=== PATIENT | female | born 1940 | race African-American/Black ===

== ENCOUNTER → 2016-11-16 | Outpatient (CLI) | payer OTHER ==
[~2016-11-16] MED LIST: ALBUTEROL SULF8.5 GM IH; AMLODIPINE BESYL5 MG PO; ANTIVERT25 MG PO; ARTHRITIS PAIN650 M1 PO; ASPIR-LOW81 MG PO; ASPIRIN325 MG PO; CENTRUM SILVER1 EAC3 PO; DILANTIN100 MG PO; GABAPENTIN300 MG PO; HYDROCHLOROTH12.5 M3 PO; HYDROCHLOROTHIA25 MG PO; K-DUR10 MEQ PO; K-DUR20 MEQ PO; KEFLEX500 MG PO; KEPPRA750 MG PO; LAMICTAL100 MG PO; LEVETIRACETAM750 MG PO; LIDOCAINE700 MG TD; LISINOPRIL-HCT1 EAC3 PO; LO-DOSE ASPIRIN81 M1 PO; LOPRESSOR50 MG PO; MAG-AL PLUS SUS30 ML PO; NAPROSYN500 MG PO; NEURONTIN300 MG PO; NIFEDIAC CC90 MG PO; NIFEDIPINE ER90 MG PO; OXYCODONE HCL5 MG PO; PANTOPRAZOLE SO40 MG PO; PHENYTEK PO; PHENYTOIN SODI300 MG PO; POTASSIUM GLUCO2 MEQ PO; PREDNISONE20 MG PO; TESSALON PERLE100 MG PO; TOPROL XL100 MG PO; TYLENOL REGULA325 MG PO; TYLENOL WITH C1 EACH PO; ZITHROMAX Z-PA250 MG PO
== END | disposition home or self-care (01) ==
LOC: CDC 10:07
DX: R94.31 Abnormal electrocardiogram [ECG] [EKG] (principal)
CPT/HCPCS: 93000

== ENCOUNTER → 2016-11-25 | Emergency (ER) | payer OTHER ==
[~2016-11-25] VITALS: Ht 165.1 cm; Wt 92.9 kg
[~2016-11-25] MED LIST changes: +HYDROCODON-ACE1 EAC7 PO; +MECLIZINE HCL25 MG PO; +NORCO 5/3251 TABLET PO; +NORVASC5 MG PO
[2016-11-26 00:44] VITALS: BP 191/99
== END | disposition home or self-care (01) ==
LOC: EME 20:59
DX: S92.511A Displaced fracture of proximal phalanx of right lesser toe(s), initial encounter for closed fracture (principal); W01.0XXA Fall on same level from slipping, tripping and stumbling without subsequent striking against object, initial encounter; Y93.E1 Activity, personal bathing and showering
CPT/HCPCS: 73630; 99281; 99284

== ENCOUNTER 2016-11-29 08:56 | Inpatient (IN) | payer OTHER ==
[~2016-11-29] VITALS: Ht 162.6 cm; Wt 88.7 kg
[2016-12-06] MEDS ORDERED: PHENYTOIN SODI100 M1 PO (07:26)
[2016-12-06] MEDS ORDERED: LAMICTAL100 MG PO (07:28)
[2016-12-06 07:30] VITALS: BP 143/83
[2016-12-06 14:26] VITALS: BP 201/95
[2016-12-07] VITALS (8 sets, daily range): BP systolic 116–182; BP diastolic 61–86
[2016-12-07 07:09] LABS: ANION GAP 9 MEQ/L (2-14); CHLORIDE 93 MEQ/L (99-109); GFR ESTIMATE (CALCULATED) > 59 mL/min/; GLUCOSE 125 mg/dL (70-99); POTASSIUM 4.1 MEQ/L (3.7-5.4); SAMPLE HEMOLYSIS CHECK 0; SAMPLE ICTERIC CHECK 0; SAMPLE LIPEMIA CHECK 0; SODIUM 128 MEQ/L (136-147); UREA NITROGEN (BUN) 14 mg/dL (9-23)
[2016-12-07 07:16] LABS: EOSINOPHIL (%) 0 % (0-5); HEMATOCRIT 28.2 % (36.0-46.0); IMMATURE GRANULOCYTE (%) 0.4 % (0.0-0.7); INSTRUMENT ABS NEUTROPHIL CT 7.4 K/uL; MCH 27.3 PG (29.0-34.0); MCHC 36.5 G/DL (30.0-36.0); MCV 74.8 FL (83-99); MONOCYTE (%) 13.5 % (3-12); MONOCYTE COUNT 1.5 K/uL (0-0.8); NEUTROPHIL (%) 67.8 % (45-76); NEUTROPHIL COUNT 7.4 K/uL (1.8-6.4); RBC DIS.WIDTH-CV 13.2 % (11.8-14.6); RBC DIS.WIDTH-SD 35.3 % (39-53); RED BLOOD COUNT 3.77 M/uL (3.80-5.20); WHITE BLOOD COUNT 10.9 K/uL (4.1-10.2)
[2016-12-07 07:31] LABS: MEAN PLAT.VOLUME 10.8 uM^3 (9.5-12.4); PLATELET COUNT 224 K/uL (156-360)
[2016-12-08 05:16] VITALS: BP 165/80
[2016-12-08 05:50] LABS: ANION GAP 9 MEQ/L (2-14); CHLORIDE 89 MEQ/L (99-109); GFR ESTIMATE (CALCULATED) > 59 mL/min/; GLUCOSE 128 mg/dL (70-99); POTASSIUM 3.3 MEQ/L (3.7-5.4); SAMPLE HEMOLYSIS CHECK 0; SAMPLE ICTERIC CHECK 0; SAMPLE LIPEMIA CHECK 0; SODIUM 125 MEQ/L (136-147); UREA NITROGEN (BUN) 8 mg/dL (9-23)
[2016-12-08 06:03] LABS: EOSINOPHIL (%) 0.1 % (0-5); IMMATURE GRANULOCYTE (%) 0.6 % (0.0-0.7); IMMATURE GRANULOCYTE COUNT 0.1 K/uL; INSTRUMENT ABS NEUTROPHIL CT 11.3 K/uL; LYMPHOCYTE COUNT 1.7 K/uL (1.0-2.8); MCHC 36.6 G/DL (30.0-36.0); MCV 73.8 FL (83-99); MEAN PLAT.VOLUME 10.1 uM^3 (9.5-12.4); MONOCYTE (%) 15.5 % (3-12); MONOCYTE COUNT 2.4 K/uL (0-0.8); NEUTROPHIL (%) 72.6 % (45-76); NEUTROPHIL COUNT 11.3 K/uL (1.8-6.4); PLATELET COUNT 258 K/uL (156-360); RBC DIS.WIDTH-CV 13.2 % (11.8-14.6); RED BLOOD COUNT 3.93 M/uL (3.80-5.20); WHITE BLOOD COUNT 15.5 K/uL (4.1-10.2)
[2016-12-08 08:20] VITALS: BP 163/82
[2016-12-08 15:29] VITALS: BP 152/76
[2016-12-09 00:28] VITALS: BP 135/57
[2016-12-09 07:31] VITALS: BP 149/76
[2016-12-09 16:19] VITALS: BP 158/78
[2016-12-09 23:28] VITALS: BP 166/72
[2016-12-10 08:17] VITALS: BP 182/92
[2016-12-10 09:45] VITALS: BP 162/82
[2016-12-10] MEDS ORDERED: CELECOXIB200 MG PO (10:33)
[2016-12-10] MEDS ORDERED: TIZANIDINE HCL4 MG PO (10:34)
[2016-12-10] MEDS ORDERED: MEDROL DOSEPAK4 MG PO (10:36)
[2016-12-10] MEDS ORDERED: VALSARTAN160 MG PO (13:47)
[2016-12-10] MEDS ORDERED: APRESOLINE50 MG PO (13:47)
[2016-12-10] MEDS ORDERED: METOPROLOL SUC100 MG PO (13:47)
[2016-12-10 16:21] VITALS: BP 161/76
[2016-12-11] MEDS ORDERED: CELEBREX200 MG PO (10:40)
[2016-12-11] MEDS ORDERED: ACETAMINOPHEN325 M1 PO (10:45)
[2016-12-11] MEDS ORDERED: APRESOLINE50 MG PO (13:35)
[2016-12-11] MEDS ORDERED: VALSARTAN160 MG PO (13:35)
[2016-12-11] MEDS ORDERED: METOPROLOL SUC100 MG PO (13:35)
[2016-12-11] MEDS ORDERED: CLONIDINE HCL0.1 MG PO (13:35)
== END 2016-12-10 17:11 | DRG 472 ==
LOC: 2SOUTH → ENRESERV 12-05 21:45 → 2SOUTH 12-06 06:45 → 3EAST 12-06 06:45 → ENRESERV 12-06 07:01 → 2SOUTH 12-06 08:44 → ENRESERV 12-06 11:53 → 3EAST 12-06 14:07
PROVIDERS: Family Medicine Sports Medicine
PROC: 0RG20AJ Fusion of 2 or more Cervical Vertebral Joints with Interbody Fusion Device, Posterior Approach, Anterior Column, Open Approach (ICD-10-PCS; principal; 2016-12-06)
DX: M47.12 Other spondylosis with myelopathy, cervical region (principal); E87.1 Hypo-osmolality and hyponatremia; M48.02 Spinal stenosis, cervical region; D64.9 Anemia, unspecified; E66.9 Obesity, unspecified; G40.909 Epilepsy, unspecified, not intractable, without status epilepticus; I10 Essential (primary) hypertension; G62.9 Polyneuropathy, unspecified; K21.9 Gastro-esophageal reflux disease without esophagitis; G89.29 Other chronic pain; M19.90 Unspecified osteoarthritis, unspecified site; M40.202 Unspecified kyphosis, cervical region; Z96.651 Presence of right artificial knee joint; Z86.011 Personal history of benign neoplasm of the brain; Z68.33 Body mass index [BMI] 33.0-33.9, adult; Z88.0 Allergy status to penicillin; Z90.49 Acquired absence of other specified parts of digestive tract
CPT/HCPCS: 72020; 72040; 72125; 76000; 80048; 84295; 85025; 86900; 86901; 94799; 97530 GP; C1713; J0330; J1100; J1170; J1200; J1580; J2405; J2710; J2930; J3010; J3370; J3480; J7120; J8540; S0020

== ENCOUNTER 2016-12-11 03:13 | Observation (INO) | payer OTHER ==
[~2016-12-11] VITALS: Ht 160 cm; Wt 92.1 kg
[~2016-12-11 03:13] MED LIST changes: +APRESOLINE50 MG PO; +CELECOXIB200 MG PO; +MEDROL DOSEPAK4 MG PO; +METOPROLOL SUC100 MG PO; +PHENYTOIN SODI100 M1 PO; +TIZANIDINE HCL4 MG PO; +VALSARTAN160 MG PO
[2016-12-11 05:25] LABS: POTASSIUM ND MEQ/L (3.7-5.4)
[2016-12-11 05:32] LABS: EOSINOPHIL (%) 1.3 % (0-5); EOSINOPHIL COUNT 0.1 K/uL (0-0.3); HEMATOCRIT 32.1 % (36.0-46.0); IMMATURE GRANULOCYTE (%) 0.3 % (0.0-0.7); INSTRUMENT ABS NEUTROPHIL CT 5.9 K/uL; LYMPHOCYTE COUNT 2.7 K/uL (1.0-2.8); MCH 26.3 PG (29.0-34.0); MCHC 35.2 G/DL (30.0-36.0); MCV 74.8 FL (83-99); MEAN PLAT.VOLUME 10.3 uM^3 (9.5-12.4); MONOCYTE COUNT 1.2 K/uL (0-0.8); NEUTROPHIL (%) 59.4 % (45-76); NEUTROPHIL COUNT 5.9 K/uL (1.8-6.4); PLATELET COUNT 344 K/uL (156-360); RBC DIS.WIDTH-CV 12.9 % (11.8-14.6); RBC DIS.WIDTH-SD 34.6 % (39-53); RED BLOOD COUNT 4.29 M/uL (3.80-5.20)
[2016-12-11 05:33] LABS: CHLORIDE 98 mEq/L (99-109)
[2016-12-11 05:35] LABS: GLUCOSE 97 mg/dL (70-99)
[2016-12-11 05:36] LABS: ANION GAP 13 MEQ/L (2-14); SODIUM 135 mEq/L (136-147)
[2016-12-11 05:39] LABS: GFR ESTIMATE (CALCULATED) > 59 mL/min/
[2016-12-11 05:40] LABS: UREA NITROGEN (BUN) 13 mg/dL (9-23)
[2016-12-11 05:43] LABS: TROP-I INTERPRETATION NEGATIVE; TROPONIN-I < 0.01 ng/mL (0.0-0.30)
[2016-12-11 06:29] LABS: POTASSIUM 3.2 mEq/L (3.7-5.4)
[2016-12-11 07:49] VITALS: BP 187/88
[2016-12-11] MEDS ORDERED: CELEBREX200 MG PO (10:40)
[2016-12-11] MEDS ORDERED: ACETAMINOPHEN325 M1 PO (10:45)
[2016-12-11 11:55] VITALS: BP 190/89
[2016-12-11 11:55] LABS: TROP-I INTERPRETATION NEGATIVE; TROPONIN-I 0.01 ng/mL (0.0-0.30)
[2016-12-11 13:15] VITALS: BP 150/73
[2016-12-11] MEDS ORDERED: APRESOLINE50 MG PO (13:35)
[2016-12-11] MEDS ORDERED: METOPROLOL SUC100 MG PO (13:35)
[2016-12-11] MEDS ORDERED: VALSARTAN160 MG PO (13:35)
[2016-12-11] MEDS ORDERED: CLONIDINE HCL0.1 MG PO (13:35)
[2016-12-11 15:57] VITALS: BP 192/90
[2016-12-11 17:59] LABS: TROP-I INTERPRETATION NEGATIVE; TROPONIN-I 0.01 ng/mL (0.0-0.30)
[2016-12-11 18:27] VITALS: BP 177/85
[2016-12-11 20:07] VITALS: BP 205/89
[2016-12-12 00:08] VITALS: BP 182/77
[2016-12-12 03:41] VITALS: BP 182/89
[2016-12-12 07:37] VITALS: BP 186/79
[2016-12-12 11:49] VITALS: BP 142/84
[2016-12-12] MEDS ORDERED: APRESOLINE100 MG PO (13:03)
== END 2016-12-12 15:34 ==
LOC: EME → EDBD 03:13 → EME 03:13 → 5WEST 05:57 → EDOF 05:57 → ENRESERV 05:59 → 5WEST 07:26
PROVIDERS: Emergency Medicine; Hospitalist
DX: R07.9 Chest pain, unspecified (principal); I16.0 Hypertensive urgency; I10 Essential (primary) hypertension; M50.00 Cervical disc disorder with myelopathy, unspecified cervical region; G62.9 Polyneuropathy, unspecified; E87.6 Hypokalemia; G40.909 Epilepsy, unspecified, not intractable, without status epilepticus; K21.9 Gastro-esophageal reflux disease without esophagitis; Z88.0 Allergy status to penicillin
CPT/HCPCS: 70450; 71010; 80048; 84484; 84999; 85025; 93005; 99281; 99284; G0378; J1200; J1644; J2270; J2765; J7509

== ENCOUNTER 2016-12-21 11:38 | Inpatient (IN) | payer OTHER ==
[~2016-12-21] VITALS: Ht 160 cm; Wt 87.5 kg
[~2016-12-21 11:38] MED LIST changes: +ACETAMINOPHEN325 M1 PO; +APRESOLINE100 MG PO; +CELEBREX200 MG PO; +CLONIDINE HCL0.1 MG PO; -HYDROCODON-ACE1 EAC7 PO; -PHENYTOIN SODI100 M1 PO
[2016-12-21 15:43] LABS: PROTHROMBIN TIME 11.4 SEC (10.2-12.9)
[2016-12-21 15:45] LABS: CHLORIDE 91 mEq/L (99-109); EOSINOPHIL (%) 1.4 % (0-5); EOSINOPHIL COUNT 0.1 K/uL (0-0.3); HEMATOCRIT 34.6 % (36.0-46.0); IMMATURE GRANULOCYTE (%) 0.2 % (0.0-0.7); INSTRUMENT ABS NEUTROPHIL CT 4.4 K/uL; LYMPHOCYTE COUNT 1.5 K/uL (1.0-2.8); MCH 26.6 PG (29.0-34.0); MCHC 35.8 G/DL (30.0-36.0); MCV 74.2 FL (83-99); MEAN PLAT.VOLUME 9.7 uM^3 (9.5-12.4); MONOCYTE (%) 9.6 % (3-12); MONOCYTE COUNT 0.6 K/uL (0-0.8); NEUTROPHIL (%) 65.3 % (45-76); NEUTROPHIL COUNT 4.4 K/uL (1.8-6.4); PLATELET COUNT 393 K/uL (156-360); PTT 32.9 SEC (25-37); RBC DIS.WIDTH-CV 13.2 % (11.8-14.6); RBC DIS.WIDTH-SD 34.8 % (39-53); RED BLOOD COUNT 4.66 M/uL (3.80-5.20); SODIUM 127 mEq/L (136-147); WHITE BLOOD COUNT 6.7 K/uL (4.1-10.2)
[2016-12-21 15:47] LABS: GLUCOSE 105 mg/dL (70-99)
[2016-12-21 15:49] LABS: ANION GAP 10 MEQ/L (2-14)
[2016-12-21 15:51] LABS: GFR ESTIMATE (CALCULATED) > 59 mL/min/
[2016-12-21 15:52] LABS: UREA NITROGEN (BUN) 10 mg/dL (9-23)
[2016-12-21 15:58] LABS: TROP-I INTERPRETATION NEGATIVE; TROPONIN-I < 0.01 ng/mL (0.0-0.30)
[2016-12-21] MEDS ORDERED: NEURONTIN600 MG PO (17:21)
[2016-12-21] MEDS ORDERED: APRESOLINE100 MG PO (17:26)
[2016-12-21] MEDS ORDERED: DIOVAN HCT 31 TABLET PO (17:27)
[2016-12-21] MEDS ORDERED: PROAIR HFA8.5 GM IH (17:28)
[2016-12-21] MEDS ORDERED: DILANTIN100 MG PO (17:41)
[2016-12-21] MEDS ORDERED: ZANAFLEX4 MG PO (17:43)
[2016-12-21] MEDS ORDERED: TOPROL XL100 MG PO (17:46)
[2016-12-21] MEDS ORDERED: CENTRUM SILVER1 EAC3 PO (17:57)
[2016-12-21 19:01] LABS: HDL CHOLESTEROL 82 MG/DL (Desirable>=50); LDL CHOLESTEROL 136 mg/dL (Desirable<100); NON-HDL CHOLESTEROL 152 mg/dL (Desirable<160); SAMPLE HEMOLYSIS CHECK 0; SAMPLE ICTERIC CHECK 0; SAMPLE LIPEMIA CHECK 0; TOTAL CHOLESTEROL 234 mg/dL (Desirable<200); TRIGLYCERIDES 82 MG/DL (Normal: <150)
[2016-12-21 19:30] VITALS: BP 194/95
[2016-12-21 19:42] LABS: Estimated Average Glucose 111 mg/dL (70-123)
[2016-12-21 20:09] LABS: HEMOGLOBIN A1c (GLYCOHEMOGLOB) 5.5 % HGB (Below 5.7)
[2016-12-21 23:46] VITALS: BP 145/66
[2016-12-22 03:52] VITALS: BP 174/81
[2016-12-22 08:08] VITALS: BP 177/87
[2016-12-22 12:47] VITALS: BP 140/80
[2016-12-22 16:24] VITALS: BP 142/68
[2016-12-22 20:03] VITALS: BP 188/81
[2016-12-22 23:47] VITALS: BP 135/61
[2016-12-23 03:41] VITALS: BP 178/80
[2016-12-23 05:55] LABS: ANION GAP 9 MEQ/L (2-14); CHLORIDE 94 MEQ/L (99-109); GFR ESTIMATE (CALCULATED) > 59 mL/min/; GLUCOSE 98 mg/dL (70-99); SAMPLE HEMOLYSIS CHECK 0; SAMPLE ICTERIC CHECK 0; SAMPLE LIPEMIA CHECK 0; SODIUM 127 MEQ/L (136-147); UREA NITROGEN (BUN) 10 mg/dL (9-23)
[2016-12-23 06:14] LABS: BASOPHIL COUNT 0.1 K/uL (0-0.1); EOSINOPHIL (%) 2.2 % (0-5); EOSINOPHIL COUNT 0.2 K/uL (0-0.3); IMMATURE GRANULOCYTE (%) 0.3 % (0.0-0.7); INSTRUMENT ABS NEUTROPHIL CT 4.3 K/uL; LYMPHOCYTE COUNT 1.9 K/uL (1.0-2.8); MCH 26.5 PG (29.0-34.0); MCHC 35.9 G/DL (30.0-36.0); MEAN PLAT.VOLUME 9.6 uM^3 (9.5-12.4); MONOCYTE (%) 16.4 % (3-12); MONOCYTE COUNT 1.3 K/uL (0-0.8); NEUTROPHIL (%) 55.8 % (45-76); NEUTROPHIL COUNT 4.3 K/uL (1.8-6.4); PLATELET COUNT 312 K/uL (156-360); RBC DIS.WIDTH-CV 13.2 % (11.8-14.6); RBC DIS.WIDTH-SD 35.4 % (39-53); RED BLOOD COUNT 3.92 M/uL (3.80-5.20); WHITE BLOOD COUNT 7.7 K/uL (4.1-10.2)
[2016-12-23 07:19] VITALS: BP 162/70
[2016-12-23 11:04] VITALS: BP 175/89
[2016-12-23] MEDS ORDERED: TYLENOL REGULA325 MG PO (11:44)
[2016-12-23] MEDS ORDERED: ATORVASTATIN CA40 MG PO (11:45)
[2016-12-23] MEDS ORDERED: SODIUM CHLORIDE1 G1 PO (11:54)
== END 2016-12-23 13:33 | disposition home health service (06) | DRG 103 ==
LOC: EME → EDBD 11:38 → 5SOUTH 17:29 → EDOF 17:29 → ENRESERV 17:30 → 5SOUTH 19:18 → ENPENDDIS 12-23 → 5SOUTH 12-23 13:33
PROVIDERS: Emergency Medicine; Family Medicine; Family Medicine Sports Medicine
DX: R51 Headache (principal); R53.1 Weakness; R42 Dizziness and giddiness; I10 Essential (primary) hypertension; G40.909 Epilepsy, unspecified, not intractable, without status epilepticus; G62.9 Polyneuropathy, unspecified; K21.9 Gastro-esophageal reflux disease without esophagitis; F41.9 Anxiety disorder, unspecified; G89.29 Other chronic pain; E87.6 Hypokalemia; E87.1 Hypo-osmolality and hyponatremia; Z91.81 History of falling; M25.511 Pain in right shoulder
CPT/HCPCS: 70450; 70551; 71010; 80048; 80061; 80185; 83036; 84484; 85025; 85610; 85730; 92523 GN; 92610 GN; 93005; 99202; 99281; 99285; C1753; S0028

== ENCOUNTER 2017-02-07 08:41 | Emergency (ER) | payer OTHER ==
[~2017-02-07] VITALS: Ht 162.6 cm; Wt 85.0 kg
[~2017-02-07 08:41] MED LIST changes: +ATORVASTATIN CA40 MG PO; +DIOVAN HCT 31 TABLET PO; +NEURONTIN600 MG PO; +PROAIR HFA8.5 GM IH; +SODIUM CHLORIDE1 G1 PO; +ZANAFLEX4 MG PO
[2017-02-07 09:47] LABS: EOSINOPHIL (%) 1.7 % (0-5); EOSINOPHIL COUNT 0.1 K/uL (0-0.3); HEMATOCRIT 28.8 % (36.0-46.0); IMMATURE GRANULOCYTE (%) 0.2 % (0.0-0.7); INSTRUMENT ABS NEUTROPHIL CT 2.8 K/uL; LYMPHOCYTE COUNT 1.6 K/uL (1.0-2.8); MCH 26.3 PG (29.0-34.0); MCHC 35.4 G/DL (30.0-36.0); MCV 74.2 FL (83-99); MEAN PLAT.VOLUME 10.2 uM^3 (9.5-12.4); MONOCYTE (%) 15.3 % (3-12); MONOCYTE COUNT 0.8 K/uL (0-0.8); NEUTROPHIL (%) 52.6 % (45-76); NEUTROPHIL COUNT 2.8 K/uL (1.8-6.4); PLATELET COUNT 244 K/uL (156-360); RBC DIS.WIDTH-CV 12.8 % (11.8-14.6); RBC DIS.WIDTH-SD 34.4 % (39-53); RED BLOOD COUNT 3.88 M/uL (3.80-5.20); WHITE BLOOD COUNT 5.3 K/uL (4.1-10.2)
[2017-02-07 10:25] LABS: ANION GAP 8 MEQ/L (2-14); CHLORIDE 97 MEQ/L (99-109); GFR ESTIMATE (CALCULATED) > 59 mL/min/; GLUCOSE 104 mg/dL (70-99); POTASSIUM 4.1 MEQ/L (3.7-5.4); SAMPLE HEMOLYSIS CHECK 0; SAMPLE ICTERIC CHECK 0; SAMPLE LIPEMIA CHECK 0; SODIUM 131 MEQ/L (136-147); UREA NITROGEN (BUN) 10 mg/dL (9-23)
[2017-02-07 12:10] VITALS: BP 156/77
== END 2017-02-07 12:30 | disposition home or self-care (01) ==
LOC: EME 08:41
PROVIDERS: Emergency Medicine
DX: R42 Dizziness and giddiness (principal); I10 Essential (primary) hypertension; Z86.73 Personal history of transient ischemic attack (TIA), and cerebral infarction without residual deficits
CPT/HCPCS: 80048; 85025; 93005; 99281; 99284

== ENCOUNTER 2017-04-16 12:16 | Emergency (ER) | payer OTHER ==
[~2017-04-16] VITALS: Ht 167.6 cm; Wt 81.5 kg
[2017-04-16 15:15] LABS: HEMATOCRIT 34.7 % (36.0-46.0); MCH 25.5 PG (29.0-34.0); MCHC 34.6 G/DL (30.0-36.0); MCV 73.7 FL (83-99); MEAN PLAT.VOLUME 10.5 uM^3 (9.5-12.4); PLATELET COUNT 272 K/uL (156-360); RBC DIS.WIDTH-CV 13.3 % (11.8-14.6); RBC DIS.WIDTH-SD 35.7 % (39-53); RED BLOOD COUNT 4.71 M/uL (3.80-5.20); WHITE BLOOD COUNT 6.6 K/uL (4.1-10.2)
[2017-04-16 15:18] LABS: CHLORIDE 102 mEq/L (99-109); SODIUM 138 mEq/L (136-147)
[2017-04-16 15:20] LABS: GLUCOSE 97 mg/dL (70-99)
[2017-04-16 15:21] LABS: ANION GAP 10 MEQ/L (2-14)
[2017-04-16 15:24] LABS: GFR ESTIMATE (CALCULATED) > 59 mL/min/; UREA NITROGEN (BUN) 8 mg/dL (9-23)
[2017-04-16 15:35] LABS: TROP-I INTERPRETATION NEGATIVE; TROPONIN-I < 0.01 ng/mL (0.0-0.30)
[2017-04-16 15:45] LABS: ADD MIUA? YES; BILIRUBIN NEGATIVE; BLOOD NEGATIVE; COLOR STRAW ((YELLOW)); GLUCOSE (STRIP) NEGATIVE; KETONES NEGATIVE; LEUKOCYTES TRACE; NITRITE NEGATIVE; PROTEIN (STRIP) NEGATIVE; SPECIFIC GRAVITY 1.005 (1.000-1.030); UROBILINOGEN 0.2 MG/DL (0.2-1.0)
[2017-04-16 15:54] LABS: BACTERIA NONE SEEN /HPF; EPITHELIAL CELLS RARE /HPF; MUCUS NONE SEEN /LPF; RED BLOOD CELLS 0-5 /HPF (0-5)
[2017-04-16] MEDS ORDERED: FLEXERIL10 MG PO (16:20)
[2017-04-16] MEDS ORDERED: ULTRAM50 MG PO (16:20)
[2017-04-16 17:28] VITALS: BP 210/96
== END 2017-04-16 17:33 | disposition home or self-care (01) ==
LOC: EME 12:16
PROVIDERS: Nurse Practitioner Family
DX: S22.080A Wedge compression fracture of T11-T12 vertebra, initial encounter for closed fracture (principal); S39.012A Strain of muscle, fascia and tendon of lower back, initial encounter; S00.03XA Contusion of scalp, initial encounter; W18.30XA Fall on same level, unspecified, initial encounter; R56.9 Unspecified convulsions; Z86.73 Personal history of transient ischemic attack (TIA), and cerebral infarction without residual deficits; Z88.0 Allergy status to penicillin
CPT/HCPCS: 70450; 72070; 72100; 80048; 81003; 84484; 85027; 93005; 99281; 99285; J1885

== ENCOUNTER 2017-05-13 05:09 | Inpatient (IN) | payer OTHER ==
[~2017-05-13] VITALS: Ht 162.6 cm; Wt 81.6 kg
[~2017-05-13 05:09] MED LIST changes: +FLEXERIL10 MG PO; -NEURONTIN600 MG PO; +ULTRAM50 MG PO
[2017-05-13 06:01] LABS: CHLORIDE 102 mEq/L (99-109); SODIUM 135 mEq/L (136-147)
[2017-05-13 06:05] LABS: TOTAL BILIRUBIN 0.3 mg/dL (0.0-1.0)
[2017-05-13 06:11] LABS: TROP-I INTERPRETATION NEGATIVE; TROPONIN-I < 0.01 ng/mL (0.0-0.30)
[2017-05-13 06:15] LABS: ALBUMIN 4.1 g/dL (3.2-4.8)
[2017-05-13 06:18] LABS: GLUCOSE 151 mg/dL (70-99)
[2017-05-13 06:21] LABS: ALKALINE PHOSPHATASE 104 IU/L (3-129); CREATININE 0.9 mg/dL (0.6-1.3); GFR ESTIMATE (CALCULATED) > 59 mL/min/
[2017-05-13 06:22] LABS: UREA NITROGEN (BUN) 22 mg/dL (9-23)
[2017-05-13 06:23] LABS: AST (GOT) 18 IU/L (2-34)
[2017-05-13 06:24] LABS: APPEARANCE SL.HAZY ((CLEAR)); BILIRUBIN NEGATIVE; BLOOD NEGATIVE; COLOR YELLOW ((YELLOW)); GLUCOSE (STRIP) NEGATIVE; KETONES NEGATIVE; LEUKOCYTES TRACE; NITRITE NEGATIVE; PROTEIN (STRIP) NEGATIVE; SPECIFIC GRAVITY 1.013 (1.000-1.030); UROBILINOGEN 0.2 MG/DL (0.2-1.0)
[2017-05-13 06:24] LABS: ALT (GPT) 15 IU/L (3-49)
[2017-05-13 06:25] LABS: LIPASE 16 U/L (1.0-51.0)
[2017-05-13 06:38] LABS: BACTERIA RARE /HPF; EPITHELIAL CELLS RARE /HPF; HYALINE CASTS 0-5 /LPF; MUCUS TRACE /LPF; RED BLOOD CELLS 0-5 /HPF (0-5); UCUL ADDED? YES; WHITE BLOOD CELLS 20-30 /HPF (0-5)
[2017-05-13 07:40] LABS: HEMATOCRIT 33.4 % (36.0-46.0); HEMOGLOBIN 11.9 G/DL (11.9-15.5); MCH 25.5 PG (29.0-34.0); MCHC 35.6 G/DL (30.0-36.0); MCV 71.5 FL (83-99); PLATELET COUNT 291 K/uL (156-360); RBC DIS.WIDTH-CV 13.5 % (11.8-14.6); RBC DIS.WIDTH-SD 34.5 % (39-53); RED BLOOD COUNT 4.67 M/uL (3.80-5.20); WHITE BLOOD COUNT 4.9 K/uL (4.1-10.2)
[2017-05-13] MEDS ORDERED: LAMICTAL100 MG PO (08:35)
[2017-05-13] MEDS ORDERED: DIOVAN160 MG PO (08:37)
[2017-05-13] MEDS ORDERED: LIPITOR40 MG PO (08:38)
[2017-05-13] MEDS ORDERED: B-12500 MC1 SL (08:39)
[2017-05-13] MEDS ORDERED: POTASSIUM GLUCO99 M1 PO (08:40)
[2017-05-13 15:56] VITALS: BP 192/89
[2017-05-13 17:39] VITALS: BP 173/82
[2017-05-13 23:49] VITALS: BP 179/81
[2017-05-14 06:32] LABS: ALBUMIN 3.7 G/DL (3.2-4.8); ALKALINE PHOSPHATASE 89 IU/L (3-129); ALT (GPT) 11 IU/L (3-49); AST (GOT) 14 IU/L (2-34); CHLORIDE 104 MEQ/L (99-109); CREATININE 0.8 MG/DL (0.6-1.3); GFR ESTIMATE (CALCULATED) > 59 mL/min/; GLUCOSE 106 mg/dL (70-99); POTASSIUM 4.2 MEQ/L (3.7-5.4); SODIUM 137 MEQ/L (136-147); TOTAL BILIRUBIN 0.4 MG/DL (0.0-1.0); TOTAL PROTEIN 6.1 G/DL (6.4-8.3); UREA NITROGEN (BUN) 10 mg/dL (9-23)
[2017-05-14 07:16] VITALS: BP 154/92
[2017-05-14 09:13] LABS: HEMATOCRIT 33.8 % (36.0-46.0); HEMOGLOBIN 11.6 G/DL (11.9-15.5); MCH 25.1 PG (29.0-34.0); MCHC 34.3 G/DL (30.0-36.0); MCV 73.2 FL (83-99); PLATELET COUNT 246 K/uL (156-360); RBC DIS.WIDTH-CV 13.8 % (11.8-14.6); RBC DIS.WIDTH-SD 36.2 % (39-53); RED BLOOD COUNT 4.62 M/uL (3.80-5.20); WHITE BLOOD COUNT 3.9 K/uL (4.1-10.2)
[2017-05-14 15:15] VITALS: BP 180/100
[2017-05-14 22:55] VITALS: BP 189/112
[2017-05-15 01:03] VITALS: BP 138/62
[2017-05-15 08:26] VITALS: BP 197/82
[2017-05-15 15:58] VITALS: BP 162/88
[2017-05-15 23:20] VITALS: BP 140/63
[2017-05-16 08:14] VITALS: BP 193/89
[2017-05-16 09:42] VITALS: BP 181/91
[2017-05-16 11:28] VITALS: BP 193/92
[2017-05-16 16:38] VITALS: BP 177/82
[2017-05-16 23:48] VITALS: BP 148/70
[2017-05-17 06:50] VITALS: BP 181/81
[2017-05-17 15:00] VITALS: BP 147/67
[2017-05-17 23:12] VITALS: BP 132/62
[2017-05-18 06:45] VITALS: BP 129/82
[2017-05-18 15:00] VITALS: BP 133/78
[2017-05-18] MEDS ORDERED: AMLODIPINE BESY10 MG PO (18:12)
[2017-05-18] MEDS ORDERED: VALSARTAN160 MG PO (18:12)
[2017-05-18 23:30] VITALS: BP 146/78
== END 2017-05-18 23:50 | disposition home or self-care (01) | DRG 689 ==
LOC: EME → EDBD 05:09 → 5EAST 07:25 → EDOF 07:25 → ENRESERV 08:25 → EDOF 13:59 → ENRESERV 14:21 → 5EAST 14:57
PROVIDERS: Emergency Medicine; Internal Medicine
DX: N39.0 Urinary tract infection, site not specified (principal); B96.4 Proteus (mirabilis) (morganii) as the cause of diseases classified elsewhere; Z16.24 Resistance to multiple antibiotics; G93.40 Encephalopathy, unspecified; I16.0 Hypertensive urgency; I10 Essential (primary) hypertension; E87.1 Hypo-osmolality and hyponatremia; R32 Unspecified urinary incontinence; M25.552 Pain in left hip; M54.5 Low back pain; E78.5 Hyperlipidemia, unspecified; E66.9 Obesity, unspecified; Z68.30 Body mass index [BMI] 30.0-30.9, adult; M19.90 Unspecified osteoarthritis, unspecified site; G40.909 Epilepsy, unspecified, not intractable, without status epilepticus; G62.9 Polyneuropathy, unspecified; D64.9 Anemia, unspecified; R73.9 Hyperglycemia, unspecified; J44.9 Chronic obstructive pulmonary disease, unspecified; K21.9 Gastro-esophageal reflux disease without esophagitis; Z86.011 Personal history of benign neoplasm of the brain; Z90.49 Acquired absence of other specified parts of digestive tract; Z98.1 Arthrodesis status
CPT/HCPCS: 70450; 71045; 80053; 80170; 80185; 81003; 83690; 84484; 85027; 87040; 87077; 87086; 87186; 93005; 99281; 99285; J0696; J0744; J1580; J7030; J7050

== ENCOUNTER 2017-05-21 13:52 | Inpatient (IN) | payer OTHER ==
[~2017-05-21] VITALS: Ht 165.1 cm; Wt 77.4 kg
[~2017-05-21 13:52] MED LIST changes: +AMLODIPINE BESY10 MG PO; +B-12500 MC1 SL; +DIOVAN160 MG PO; +LIPITOR40 MG PO; +POTASSIUM GLUCO99 M1 PO
[2017-05-21 16:10] LABS: HEMATOCRIT 35.7 % (36.0-46.0); HEMOGLOBIN 12.8 G/DL (11.9-15.5); MCH 25.7 PG (29.0-34.0); MCHC 35.9 G/DL (30.0-36.0); MCV 71.5 FL (83-99); RBC DIS.WIDTH-CV 13.7 % (11.8-14.6); RBC DIS.WIDTH-SD 34.5 % (39-53); RED BLOOD COUNT 4.99 M/uL (3.80-5.20); WHITE BLOOD COUNT 6.2 K/uL (4.1-10.2)
[2017-05-21 16:26] LABS: TROP-I INTERPRETATION NEGATIVE; TROPONIN-I < 0.01 ng/mL (0.0-0.30)
[2017-05-21 16:46] LABS: APPEARANCE SL.HAZY ((CLEAR)); BILIRUBIN NEGATIVE; BLOOD NEGATIVE; COLOR YELLOW ((YELLOW)); GLUCOSE (STRIP) NEGATIVE; KETONES NEGATIVE; LEUKOCYTES NEGATIVE; NITRITE NEGATIVE; PROTEIN (STRIP) 30; SPECIFIC GRAVITY 1.008 (1.000-1.030); UROBILINOGEN 0.2 MG/DL (0.2-1.0)
[2017-05-21 16:58] LABS: BACTERIA NONE SEEN /HPF; EPITHELIAL CELLS RARE /HPF; MUCUS TRACE /LPF; RED BLOOD CELLS 0-5 /HPF (0-5); WHITE BLOOD CELLS 0-5 /HPF (0-5)
[2017-05-21 17:05] LABS: PLATELET COUNT 218 K/uL (156-360)
[2017-05-21 17:55] LABS: ALBUMIN 4.2 g/dL (3.2-4.8); CHLORIDE 95 mEq/L (99-109); POTASSIUM 3.4 mEq/L (3.7-5.4); SODIUM 134 mEq/L (136-147)
[2017-05-21 17:57] LABS: GLUCOSE 103 mg/dL (70-99); TOTAL PROTEIN 7.1 g/dL (6.4-8.3)
[2017-05-21 17:59] LABS: TOTAL BILIRUBIN 0.5 mg/dL (0.0-1.0)
[2017-05-21 18:01] LABS: ALKALINE PHOSPHATASE 103 IU/L (3-129); CREATININE 0.9 mg/dL (0.6-1.3); GFR ESTIMATE (CALCULATED) > 59 mL/min/
[2017-05-21 18:02] LABS: UREA NITROGEN (BUN) 12 mg/dL (9-23)
[2017-05-21 18:03] LABS: AST (GOT) 21 IU/L (2-34)
[2017-05-21 18:04] LABS: ALT (GPT) 14 IU/L (3-49)
[2017-05-22 08:47] VITALS: BP 139/74
[2017-05-22 09:30] LABS: FASTING STATUS NONFASTING
[2017-05-22 09:41] LABS: BASOPHIL (%) 0.6 % (0-1); EOSINOPHIL (%) 1.5 % (0-5); EOSINOPHIL COUNT 0.1 K/uL (0-0.3); HEMATOCRIT 33.5 % (36.0-46.0); HEMOGLOBIN 11.6 G/DL (11.9-15.5); IMMATURE GRANULOCYTE (%) 0.2 % (0.0-0.7); LYMPHOCYTE (%) 41.7 % (15-42); LYMPHOCYTE COUNT 1.9 K/uL (1.0-2.8); MCH 24.8 PG (29.0-34.0); MCHC 34.6 G/DL (30.0-36.0); MCV 71.7 FL (83-99); MONOCYTE (%) 12.3 % (3-12); MONOCYTE COUNT 0.6 K/uL (0-0.8); NEUTROPHIL (%) 43.7 % (45-76); PLATELET COUNT 245 K/uL (156-360); RBC DIS.WIDTH-CV 13.8 % (11.8-14.6); RBC DIS.WIDTH-SD 35.6 % (39-53); RED BLOOD COUNT 4.67 M/uL (3.80-5.20); WHITE BLOOD COUNT 4.6 K/uL (4.1-10.2)
[2017-05-22 09:54] LABS: HDL CHOLESTEROL 56 MG/DL (Desirable>=50); LDL CHOLESTEROL 68 mg/dL (Desirable<100); NON-HDL CHOLESTEROL 80 mg/dL (Desirable<160); TOTAL CHOLESTEROL 136 mg/dL (Desirable<200); TRIGLYCERIDES 59 MG/DL (Normal: <150)
[2017-05-22 12:37] VITALS: BP 119/64
[2017-05-22 12:41] LABS: HEMOGLOBIN A1c (GLYCOHEMOGLOB) 5.3 % (Below 5.7)
[2017-05-22 17:37] VITALS: BP 129/64
[2017-05-22 19:44] VITALS: BP 122/65
[2017-05-22 23:59] VITALS: BP 124/65
[2017-05-23 03:58] VITALS: BP 129/68
[2017-05-23 08:31] VITALS: BP 131/68
[2017-05-23 09:28] VITALS: BP 130/68
[2017-05-23 11:55] VITALS: BP 154/64
[2017-05-23 17:10] VITALS: BP 133/65
[2017-05-23 19:47] VITALS: BP 136/63
[2017-05-24 01:24] VITALS: BP 127/62
[2017-05-24 04:42] VITALS: BP 122/60
[2017-05-24 07:04] LABS: EOSINOPHIL (%) 2.4 % (0-5); EOSINOPHIL COUNT 0.1 K/uL (0-0.3); HEMATOCRIT 31.2 % (36.0-46.0); HEMOGLOBIN 10.9 G/DL (11.9-15.5); LYMPHOCYTE (%) 58.6 % (15-42); LYMPHOCYTE COUNT 2.4 K/uL (1.0-2.8); MCH 25.4 PG (29.0-34.0); MCHC 34.9 G/DL (30.0-36.0); MCV 72.7 FL (83-99); MONOCYTE (%) 15.8 % (3-12); MONOCYTE COUNT 0.7 K/uL (0-0.8); NEUTROPHIL (%) 22.2 % (45-76); NEUTROPHIL COUNT 0.9 K/uL (1.8-6.4); PLATELET COUNT 240 K/uL (156-360); RBC DIS.WIDTH-CV 13.7 % (11.8-14.6); RED BLOOD COUNT 4.29 M/uL (3.80-5.20); WHITE BLOOD COUNT 4.1 K/uL (4.1-10.2)
[2017-05-24 07:08] LABS: CHLORIDE 97 MEQ/L (99-109); CREATININE 0.8 MG/DL (0.6-1.3); GFR ESTIMATE (CALCULATED) > 59 mL/min/; GLUCOSE 90 mg/dL (70-99); POTASSIUM 3.7 MEQ/L (3.7-5.4); SODIUM 133 MEQ/L (136-147); UREA NITROGEN (BUN) 12 mg/dL (9-23)
[2017-05-24 08:02] VITALS: BP 139/70
[2017-05-24 12:41] VITALS: BP 132/72
[2017-05-24 16:25] VITALS: BP 122/63
[2017-05-24] MEDS ORDERED: AMLODIPINE BESYL5 MG PO (18:14)
[2017-05-24] MEDS ORDERED: ANTIVERT25 MG PO (18:14)
== END 2017-05-24 21:24 | disposition home or self-care (01) | DRG 880 ==
LOC: EME 13:52 → 5SOUTH 22:05 → EDOF 22:05 → ENRESERV 22:08 → 5SOUTH 05-22 04:03
PROVIDERS: Emergency Medicine; Internal Medicine
DX: F44.4 Conversion disorder with motor symptom or deficit (principal); G81.94 Hemiplegia, unspecified affecting left nondominant side; H81.319 Aural vertigo, unspecified ear; E87.1 Hypo-osmolality and hyponatremia; E87.6 Hypokalemia; G62.9 Polyneuropathy, unspecified; I10 Essential (primary) hypertension; G40.909 Epilepsy, unspecified, not intractable, without status epilepticus; E78.5 Hyperlipidemia, unspecified; M19.90 Unspecified osteoarthritis, unspecified site; E66.9 Obesity, unspecified; Z68.28 Body mass index [BMI] 28.0-28.9, adult; Z86.011 Personal history of benign neoplasm of the brain; Z86.73 Personal history of transient ischemic attack (TIA), and cerebral infarction without residual deficits
CPT/HCPCS: 70450; 70551; 71045; 80048; 80053; 80061; 81003; 82140; 82948; 83036; 84484; 85025; 85027; 87086; 93005; 93880; 94799; 99202; 99281; 99285; J1644